=== PATIENT | male | born 1945 | race Caucasian/White ===

== ENCOUNTER 2023-03-14 13:25 | Emergency (ER) | payer MEDICARE, OTHER | END 2023-03-14 15:59 | disposition home or self-care (01) | LOC: DL.ED 13:25 | DX: S51.012A Laceration without foreign body of left elbow, initial encounter (principal); K21.9 Gastro-esophageal reflux disease without esophagitis; I48.91 Unspecified atrial fibrillation; N40.0 Benign prostatic hyperplasia without lower urinary tract symptoms; E66.9 Obesity, unspecified; Z88.0 Allergy status to penicillin; Z88.1 Allergy status to other antibiotic agents; Z79.899 Other long term (current) drug therapy; Z68.35 Body mass index [BMI] 35.0-35.9, adult; Z79.01 Long term (current) use of anticoagulants; W26.8XXA Contact with other sharp object(s), not elsewhere classified, initial encounter | CPT/HCPCS: 99282 ==

== ENCOUNTER 2023-03-27 23:10 | Emergency (ER) | payer MEDICARE, OTHER ==
[2023-03-27] MEDS ORDERED: fentaNYL 100 MCG/2 ML SDV IVPUSH ONE (23:26)
[2023-03-27] MEDS ORDERED: Ondansetron 4 MG/2 ML SDV IVPUSH ONE ×2 (23:26→23:57)
[2023-03-27 23:51] LABS: BASOPHILS PERCENT AUTO 0.4 % (0.0-1.0); EOSINOPHILS PERCENT AUTO 3.6 % (1.0-3.0); HEMATOCRIT 33.8 % (40.0-54.0); HEMOGLOBIN 11.5 g/dL (14.0-18.0); LYMPHOCYTES PERCENT AUTO 12.9 % (20.5-50.1); MEAN CORPUSCULAR HEMOGLOBIN 30.1 pg (27.0-34.0); MEAN CORPUSCULAR VOLUME 88.5 fL (80-100); MONOCYTES PERCENT AUTO 12.3 % (2-8); NEUTROPHILS PERCENT AUTO 70.8 % (42.2-75.2); PLATELET COUNT,PLT 243 10^3/uL (150-450); RED BLOOD CELL COUNT 3.82 10^6/uL (4.6-6.2); WHITE BLOOD CELL COUNT,WBC 7.2 10^3/uL (5.0-10.0)
[2023-03-28] LABS: PROTHROMBIN TIME 10.4 SEC (9.0-12.0)
[2023-03-28 00:05] LABS: A/G RATIO 0.9; ALANINE AMINOTRANSFERASE,ALT 12 U/L (16-63); ALBUMIN 3.4 g/dL (3.4-5.0); ALKALINE PHOSPHATASE 152 U/L (46-116); ANION GAP 12.2 mEq/L (7-13); ASPARTATE AMNIOTRANSFERASE,AST 14 U/L (15-37); BILIRUBIN TOTAL 0.2 mg/dL (0.2-1.0); BLOOD UREA NITROGEN,BUN 14 mg/dL (7-18); BUN/CREATININE RATIO 16.1 (No establ ref range); CALCIUM 8.7 mg/dL (8.5-10.1); CARBON DIOXIDE,CO2 26 mmol/L (21-32); CHLORIDE,CL 96 mmol/L (98-107); CREATININE 0.87 mg/dL (0.70-1.30); GLUCOSE RANDOM 178 mg/dL (70-99); POTASSIUM,K 4.2 mmol/L (3.5-5.1); PROTEIN TOTAL,TP 7.2 g/dL (6.4-8.2); SODIUM,NA 130 mmol/L (136-145)
[2023-03-28 00:08] LABS: ESTIMATED GFR 89 mL/min (>=60)
[2023-03-28] MEDS ORDERED: Sodium Chloride 0.9% 10 ML Syringe FLUSH SCH (00:15)
== END 2023-03-28 00:43 | disposition home or self-care (01) ==
LOC: DL.ED 23:10
DX: M25.551 Pain in right hip (principal); M54.2 Cervicalgia; M54.50 Low back pain, unspecified; I48.91 Unspecified atrial fibrillation; K21.9 Gastro-esophageal reflux disease without esophagitis; E66.9 Obesity, unspecified; Z68.36 Body mass index [BMI] 36.0-36.9, adult; Z88.0 Allergy status to penicillin; Z88.1 Allergy status to other antibiotic agents; Z79.01 Long term (current) use of anticoagulants; Z79.899 Other long term (current) drug therapy; Z95.0 Presence of cardiac pacemaker; W18.30XA Fall on same level, unspecified, initial encounter; Y92.122 Bedroom in nursing home as the place of occurrence of the external cause
CPT/HCPCS: 36415; 70450; 72125; 72128; 72131; 72192; 80053; 85025; 85610; 96374; 96375; 99284; J2405; J3010; J3490